=== PATIENT | male | born 1955 | race Hispanic/Latino ===

== ENCOUNTER 2021-10-28 09:43 | Inpatient (IN) | payer BC, OTHER ==
[2021-10-28] VITALS (22 sets, daily range): BP systolic 93–186; BP diastolic 48–98
[~2021-10-28] VITALS: Ht 170.2 cm; Wt 82.6 kg
[2021-10-28] MEDS ORDERED: LACTATED RINGERS 1000ML 1,000 ML IV ONE (10:00)
[2021-10-28 10:06] LABS: BASOPHILS % (AUTO) 0.1 % (0.0-5.0); HEMATOCRIT 39.3 % (42-54); LYMPHOCYTES % (AUTO) 8.3 % (21.0-51.0); MEAN CORPUSCULAR HEMOGLOBIN 30.1 pg (27.0-33.0); MEAN CORPUSCULAR HGB CONC 34.6 g/dL (32.0-36.0); MEAN CORPUSCULAR VOLUME 86.9 fL (79-99); MONOCYTES % (AUTO) 4.9 % (3.0-13.0); NEUTROPHILS % (AUTO) 86.2 % (40.0-77.0); PLATELET COUNT (AUTO) 247 K/uL (130-400); RED BLOOD CELL COUNT(AUTO) 4.52 MIL/uL (4.50-6.20); RED CELL DISTRIBUTION WIDTH 12.8 % (11.0-15.5); WHITE BLOOD COUNT (AUTO) 14.4 K/uL (4.8-10.8)
[2021-10-28 10:28] LABS: B-TYPE NATRIURETIC PEPTIDE 75 pg/mL (0-100)
[2021-10-28] MEDS ORDERED: PHARMACY COMMUNICATION MISC SCH (10:30)
[2021-10-28 10:34] LABS: ALBUMIN 3.4 g/dL (3.5-5.0); CREATININE 1.4 mg/dL (0.5-1.5); POTASSIUM 5.1 mmol/L (3.5-5.1); TOTAL PROTEIN, SERUM 7.6 g/dL (6.0-8.3)
[2021-10-28] MEDS ORDERED: KETAMINE HCL 100 MG/ML 5ML VIAL IJ ONE (10:39)
[2021-10-28 11:57] LABS: APPEARANCE,URINE CLEAR (CLEAR); BILIRUBIN,URINE NEGATIVE (NEGATIVE); COLOR,URINE YELLOW (YELLOW); GLUCOSE, URINE (UA) >=1000 mg/dL (NEGATIVE); KETONES,URINE 15 mg/dL (NEGATIVE); LEUKOCYTE ESTERASE ,URINE NEGATIVE (NEGATIVE); NITRATE,URINE NEGATIVE (NEGATIVE); OCCULT BLOOD,URINE MODERATE (NEGATIVE); PROTEIN,URINE 100 mg/dL (NEGATIVE); UROBILINOGEN,URINE 0.2 mg/dL (0.2-1.0)
[2021-10-28 12:05] LABS: AMPHET/METH SCREEN,URINE NEGATIVE (NEGATIVE); BARBITURATE SCREEN, URINE NEGATIVE (NEGATIVE); BENZODIAZEPINES SCREEN,URINE NEGATIVE (NEGATIVE); CANNABINOID SCREEN,URINE NEGATIVE (NEGATIVE); COCAINE SCREEN,URINE POSITIVE (NEGATIVE); OPIATE SCREEN,URINE NEGATIVE (NEGATIVE); PHENCYCLIDINE SCREEN,URINE NEGATIVE (NEGATIVE)
[2021-10-28 12:07] LABS: BACTERIA,URINE Rare /HPF (None Seen); RBC,URINE 0-1 /HPF (0-1); SQUAMOUS EPITHELIAL CELL,UR Rare /HPF (0-2); WBC,URINE 0-1 /HPF (0-1)
[2021-10-28] MEDS ORDERED: MORPHINE 2 MG SYG IVP ONE (13:00)
[2021-10-28] MEDS ORDERED: ONDANSETRON 4MG INJ IVP ONE (13:00)
[2021-10-28] MEDS ORDERED: CLONIDINE HCL 0.1 MG TABLET PO ONE (13:00)
[2021-10-28] MEDS ORDERED: INSULIN HUMULIN R 100 UNIT/ML 3ML ONE (13:24)
[2021-10-28] MEDS ORDERED: INSULIN HUMULIN R 100 UNIT/ML 3ML IV ONE (13:30)
[2021-10-28 14:25] LABS: CREATININE 1.2 mg/dL (0.5-1.5); POTASSIUM 5.8 mmol/L (3.5-5.1)
[2021-10-28] MEDS ORDERED: HYDRALAZINE 20MG/ML VIAL IV PRN (14:30)
[2021-10-28] MEDS ORDERED: MORPHINE 4 MG SYG IVP PRN (14:30)
[2021-10-28 14:31] LABS: HEMOGLOBIN A1C 10.3 % (4.0-6.0)
[2021-10-28 14:32] LABS: INR 0.94 (0.85-1.15); PROTHROMBIN TIME 10.3 SEC (9.6-11.6)
[2021-10-28 14:33] LABS: PARTIAL THROMBOPLASTIN TIME 23.1 SEC (26.3-35.5)
[2021-10-28] MEDS ORDERED: SUCCINYLCHOLINE CHLORIDE 20 MG/ML 10 ML VIAL ONE (17:57)
[2021-10-28] MEDS ORDERED: PROPOFOL 10 MG/ML 20ML VIAL IV ONE ×2 (17:57→18:16)
[2021-10-28] MEDS ORDERED: INSULIN HUMULIN R 100 UNIT/ML 3ML SQ SCH (18:00)
[2021-10-28] MEDS ORDERED: ROCURONIUM 10MG/1ML SYR 10 MG/ML ML ONE (18:02)
[2021-10-28] MEDS ORDERED: FENTANYL CITRATE PF 50 MCG/1 ML 2ML VIAL ONE (18:12)
[2021-10-28] MEDS ORDERED: LABETALOL 20MG VIAL IV ONE (19:03)
[2021-10-28] MEDS ORDERED: ACETAMINOPHEN WITH CODEINE 1 TAB TAB PO PRN (20:00)
[2021-10-28] MEDS ORDERED: MORPHINE 2 MG SYG IVP PRN (20:00)
[2021-10-28] MEDS ORDERED: 0.9%NACL 1000ML 1,000 ML IV ONE (20:30)
[2021-10-28] MEDS ORDERED: DAPA10TA PO (20:55)
[2021-10-28] MEDS ORDERED: LISI20TA24 PO (20:55)
[2021-10-28] MEDS ORDERED: GABA-529 PO (20:55)
[2021-10-28] MEDS ORDERED: GLIM4TAB36 PO (20:55)
[2021-10-28] MEDS ORDERED: SIMV10TA97 PO (20:55)
[2021-10-28] MEDS ORDERED: METF-446 PO (20:55)
[2021-10-28 22:02] LABS: CREATININE 1.3 mg/dL (0.5-1.5); POTASSIUM 4.4 mmol/L (3.5-5.1)
[2021-10-29 03:25] VITALS: BP 153/74
[2021-10-29 05:15] LABS: BASOPHILS % (AUTO) 0.1 % (0.0-5.0); EOSINOPHILS % (AUTO) 0.4 % (0.0-8.0); HEMATOCRIT 33.2 % (42-54); LYMPHOCYTES % (AUTO) 20.2 % (21.0-51.0); MEAN CORPUSCULAR HEMOGLOBIN 30.2 pg (27.0-33.0); MEAN CORPUSCULAR HGB CONC 34.3 g/dL (32.0-36.0); MEAN CORPUSCULAR VOLUME 87.8 fL (79-99); MONOCYTES % (AUTO) 9.4 % (3.0-13.0); NEUTROPHILS % (AUTO) 69.4 % (40.0-77.0); PLATELET COUNT (AUTO) 193 K/uL (130-400); RED BLOOD CELL COUNT(AUTO) 3.78 MIL/uL (4.50-6.20); WHITE BLOOD COUNT (AUTO) 11.3 K/uL (4.8-10.8)
[2021-10-29 05:41] LABS: CREATININE 1.2 mg/dL (0.5-1.5); POTASSIUM 4.4 mmol/L (3.5-5.1)
[2021-10-29] MEDS: INSULIN HUMULIN R 100 UNIT/ML 3ML SQ SCH ×5 (06:29→20:02)
[2021-10-29 08:00] VITALS: BP 144/86
[2021-10-29] MEDS: THIAMINE HCL 100 MG/ML 2ML VIAL IVP SCH (08:35)
[2021-10-29] MEDS: FOLIC ACID 1 MG TABLET PO SCH (08:35)
[2021-10-29 12:00] VITALS: BP 168/81
[2021-10-29 16:00] VITALS: BP 121/49
[2021-10-29] MEDS ORDERED: GABAPENTIN 100 MG CAPSULE PO PRN (18:00)
[2021-10-29 20:49] VITALS: BP 181/86
[2021-10-29] MEDS ORDERED: DAPAGLIFLOZIN PROPANEDIOL PO SCH (21:00)
[2021-10-29] MEDS ORDERED: LISINOPRIL 20 MG TABLET PO SCH (21:00)
[2021-10-29] MEDS ORDERED: INSULIN GLARGINE 100 UNITS/ML 10 ML VIAL SQ SCH (21:00)
[2021-10-29] MEDS ORDERED: SIMVASTATIN 10 MG TABLET PO SCH (21:00)
[2021-10-29] MEDS ORDERED: GLIMEPIRIDE 2 MG TABLET PO SCH (21:00)
[2021-10-30] VITALS: BP 167/89
[2021-10-30 04:00] VITALS: BP 168/87
[2021-10-30 05:21] LABS: HEMATOCRIT 35.9 % (42-54); MEAN CORPUSCULAR VOLUME 88.4 fL (79-99); RED BLOOD CELL COUNT(AUTO) 4.06 MIL/uL (4.50-6.20); RED CELL DISTRIBUTION WIDTH 12.8 % (11.0-15.5)
[2021-10-30 05:46] LABS: POTASSIUM 4.1 mmol/L (3.5-5.1)
[2021-10-30] MEDS: INSULIN HUMULIN R 100 UNIT/ML 3ML SQ SCH ×4 (06:26→11:30)
[2021-10-30 07:52] VITALS: BP 167/91
[2021-10-30] MEDS ORDERED: METOPROLOL TARTRATE 1 MG/ML 5ML VIAL IV PRN (08:00)
[2021-10-30] MEDS ORDERED: HYDRALAZINE 25MG TABLET PO PRN (08:00)
[2021-10-30] MEDS ORDERED: METFORMIN HCL 500 MG TABLET PO SCH (08:00)
[2021-10-30] MEDS: THIAMINE HCL 100 MG/ML 2ML VIAL IVP SCH (09:00)
[2021-10-30] MEDS: FOLIC ACID 1 MG TABLET PO SCH (09:00)
[2021-10-30] MEDS ORDERED: PANTOPRAZOLE 40 MG/VIAL IVP SCH (09:00)
[2021-10-30] MEDS ORDERED: ACET-2079 PO (10:22)
== END 2021-10-30 15:17 | disposition home or self-care (01) | DRG 563 ==
LOC: EDH 09:43 → EDHIP 14:02 → 4BH 16:35
PROVIDERS: ADMIT Hospitalist; ATTEND Hospitalist
PROC: 0RSJXZZ Reposition Right Shoulder Joint, External Approach (ICD-10-PCS; principal; 2021-10-28 17:55)
PROC: 0RSJXZZ Reposition Right Shoulder Joint, External Approach (ICD-10-PCS; 2021-10-29)
DX: S43.014A Anterior dislocation of right humerus, initial encounter (principal); N17.9 Acute kidney failure, unspecified; Z20.822 Contact with and (suspected) exposure to COVID-19; I16.0 Hypertensive urgency; E11.65 Type 2 diabetes mellitus with hyperglycemia; E78.5 Hyperlipidemia, unspecified; F17.210 Nicotine dependence, cigarettes, uncomplicated; E11.22 Type 2 diabetes mellitus with diabetic chronic kidney disease; I12.9 Hypertensive chronic kidney disease with stage 1 through stage 4 chronic kidney disease, or unspecified chronic kidney disease; N18.30 Chronic kidney disease, stage 3 unspecified; F14.90 Cocaine use, unspecified, uncomplicated; W01.0XXA Fall on same level from slipping, tripping and stumbling without subsequent striking against object, initial encounter; Y93.89 Activity, other specified; Y92.89 Other specified places as the place of occurrence of the external cause; Y99.8 Other external cause status
CPT/HCPCS: 36415; 70450; 71045; 72128; 73020; 73030; 73200; 80048; 80053; 80305; 81001; 82550; 82948; 83036; 83880; 84132; 84443; 84484; 85025; 85027; 85610; 85730; 87635; 93005; 99291; A4565; A4606; C9113; G0378; J0330; J0360; J1815; J2270; J2405; J2704; J3010; J3411; J3490; J7030

== ENCOUNTER → 2023-06-15 | Outpatient (CLI) | payer OTHER ==
[~2023-06-15] MED LIST: AEC81 PO; ATOR40TA69 PO; CLOP-31 PO; GLIM4TAB36 PO; INSUL SQ; INSULIN SQ; LISI40TA9 PO; METF-446 PO
[2023-06-15] MEDS: REGADENOSON 0.4 MG/5 ML PF SYG IVP ONE (13:50)
== END | disposition home or self-care (01) ==
LOC: SHCH 08:37
PROVIDERS: ATTEND Internal Medicine Cardiovascular Disease
DX: I50.22 Chronic systolic (congestive) heart failure (principal)
CPT/HCPCS: 78452; 96374; 93017; J2785; A9500 ×2

== ENCOUNTER → 2023-11-30 | Outpatient (CLI) | payer OTHER | END | disposition home or self-care (01) | LOC: SHCH 10:34 | PROVIDERS: ATTEND Internal Medicine Cardiovascular Disease | DX: I25.10 Atherosclerotic heart disease of native coronary artery without angina pectoris (principal); R01.1 Cardiac murmur, unspecified | CPT/HCPCS: 93306 ==